=== PATIENT | female | born 1980 | race Caucasian/White ===

== ENCOUNTER → 2017-09-01 | Day surgery (SDC) | payer BC ==
[~2017-09-01] VITALS: Ht 154.9 cm; Wt 75.0 kg
[~2017-09-01] MED LIST: ACETAMINOPHEN 1000 MG/100 ML 100 ML IV ONE; ALPR.5 PO; BUPIVACAINE HCL PF 0.25% 30 ML VIAL ONE; BUPIVACAINE/EPINEPHRINE 0.25% 50 ML VIAL ONE; DO NOT ADM ANY ANTICOAGULANT DRUGS PRN; HYDROmorphone HCL PF 2 MG/ML VIAL ONE; LACTATED RINGER'S 1000 ML INJ 1,000 ML ONE; MIDAZOLAM HCL 2 MG/2 ML VIAL ONE; MORPHINE SULFATE 4 MG/ML INJ ONE; OMEP40CA2 PO; POVIDONE IODINE 10% SOLN 118 ML BOTTLE TOPICAL PRN; PROMETHAZINE INJ 25 MG/ML VIAL ONE
[2017-09-01 07:22] LABS: HEMATOCRIT 39.1 % (35.0-46.0); HEMOGLOBIN 13.1 GM/DL (11.6-15.3); MEAN CELL VOLUME 88.9 FL (80.0-100.0); MEAN CORPUSCULAR HEMOGLOBIN 29.9 PG (27.0-34.0); MEAN CORPUSCULAR HGB CONC 33.6 % (32.0-36.0); MEAN PLATELET VOLUME 8.4 FL (7.0-11.0); PLATELET COUNT 192 TH/MM3 (150-450); RED CELL DISTRIBUTION WIDTH 11.8 % (11.6-17.2); WHITE BLOOD COUNT 4.9 TH/MM3 (4.0-11.0)
--- NOTE | 2017-09-01 08:57 | PD.OP ---
Operative Report Date of Surgery: Sep 01, 2017 Preoperative Diagnosis: (1) Encounter for female sterilization procedure (2) Charcot Nely Tooth muscular atrophy (3) Encounter for IUD removal Postoperative Diagnosis: (1) Encounter for female sterilization procedure (2) Charcot Nely Tooth muscular atrophy (3) Encounter for IUD removal Procedure: Laparoscopic application of Falope rings Removal of intrauterine device Anesthesia: ANA Sylvester Surgeon: Padma Meadows Aerial Photograph Interpreter(s): Gabriel Limon Surgeon: n/a Operation and Findings: Indications: This 37 y/o has a hereditary condition. She is certain she wants no children. She requests permanent sterilization. Findings: Normal pelvic to laparoscopic view. Procedure: The patient was taken to the operating room and placed supine for general endotracheal anesthesia. She was then placed in dorso-lithotomy position in low stirrups and prepped with Betadine. An open-sided speculum was used to visualize the cervix and grasp it with a single-tooth tenaculum and the iIUD strings were seen. The IUD was removed easily by grasping the strings and pulling. The device was intact. A [employer] uterine manipulator was placed. The other instruments were removed, and after re-gloving, attention was turned to the abdomen. A 8 mm incision was made in the umbilicus and 3 liters of CO2 were instilled by Veress needle. The trochar was inserted without incident. Under direct visualization and using transillumination to avoid vessels, the 5 mm post was then placed in the left lower quadrant. Using the Falope ring applicator per patient monitor's instructions, a Falope ring was placed on the midportion of each Fallopian tube. There was no tearing and the isolated segments blanched. The fimbrial portion of the tube was again visualized. 10 cc of 0.25 Marcaine was injected freely into the pelvis for analgesia. The procedure being complete, the pneumoperitoneum was released and the incisions were closed with 4-0 Monocryl and sealed with Dermabond. The uterine manipulator was removed. The patient was replaced suppine, awakened and extubated. She was transferred to the recovery room awake and breathing on her own. Sponge, needle and instrument counts were correct. Padma Meadows MD Sep 01, 2017 08:57
[2017-09-01 11:55] VITALS: BP 135/88; PULSE 68; RESP 16; TEMP 98.3; O2SAT 99
== END | disposition home or self-care (01) ==
LOC: PHSDC 06:09 → EDSTATUS 07:30
PROVIDERS: ATTEND Obstetrics & Gynecology
DX: Z30.2 Encounter for sterilization (principal); G60.0 Hereditary motor and sensory neuropathy; M62.50 Muscle wasting and atrophy, not elsewhere classified, unspecified site; Z30.432 Encounter for removal of intrauterine contraceptive device
CPT/HCPCS: 00851; 36415; 58301; 58671; 85027; J1170; J2250; J2270; J2550; J3010; J7120